=== PATIENT | female | born 1965 | race Caucasian/White ===

== ENCOUNTER 2021-03-24 16:41 | Emergency (ER) | payer BC, SELFPAY ==
--- NOTE | ~2021-03-24 | XR_ITS ---
EXAMINATION: XR chest 1V portable DATE: 03/24/2021 17:23 INDICATION: Left chest pain radiating to the left arm. TECHNIQUE: frontal view of the chest was obtained. COMPARISON: Chest radiograph dated 08/01/19 FINDINGS: The lungs remain clear with no focal airspace opacities, pulmonary edema, pleural effusion or pneumot horax. The cardiomediastinal silhouette is normal. Visualized bones and soft tissues are unremarkable . IMPRESSION: 1. No acute cardiopulmonary disease. Reviewed, dictated and finalized at location A.
--- NOTE | 2021-03-24 16:43 | ECG_ITS ---
Measurements Intervals [place] Rate: 77 P: 57 WV: 142 QRS: 36 QRSD: 69 T: 52 QT: 357 QTc: 405 Interpretive Statements SINUS RHYTHM BASELINE ARTIFACT- II, III, AVF BORDERLINE ECG Electronically Signed On 03-24-2021 18:00:27 CDT by Evelio Richter D.O.
[2021-03-24 17:00] VITALS: PULSE 72
[2021-03-24] MEDS: ASPIRIN 81 MG CHEWABLE TABLET 324 MG PO (17:02)
[2021-03-24] MEDS: NITROGLYCERIN SL 0.4 MG TABLET SUBLINGUAL (17:05)
[2021-03-24 17:09] VITALS: BP 147/99; PULSE 80; RESP 20; TEMP 36.8; O2SAT 99
[2021-03-24 17:19] LABS: Basophils Absolute Auto 0.04 K/mm3 (0.00-0.10); Basophils Percent Auto 0.7 % (0.0-1.0); Eosinophils Absolute Auto 0.13 K/mm3 (0.02-0.50); Eosinophils Percent Auto 2.3 % (1.0-6.0); Hematocrit 35.7 % (35.0-49.0); Hemoglobin 11.8 g/dL (12.0-15.0); Immature Granulocyte Absolute 0.01 K/mm3 (0.00-0.00); Immature Granulocyte Percent A 0.2 % (0.0-0.0); Lymphocytes Absolute Auto 1.52 K/mm3 (1.10-4.50); Lymphocytes Percent Auto 27.2 % (18.0-42.0); Mean Corpuscular HGB Conc 33.1 g/dL (32.0-36.0); Mean Corpuscular Hemoglobin 33.3 pg (27.0-31.0); Mean Corpuscular Volume 100.8 fL (78.0-102.0); Mean Platelet Volume 11.1 fl (9.2-11.8); Monocytes Absolute Auto 0.35 K/mm3 (0.10-0.90); Monocytes Percent Auto 6.3 % (2.0-11.0); Neutrophils Absolute Auto 3.5 K/mm3 (1.7-7.2); Neutrophils Percent Auto 63.3 % (50.0-70.0); Platelet Count Result 267 K/mm3 (150-420); Red Blood Count 3.54 M/mm3 (4.20-5.40); Red Cell Distribution Width 12.6 % (11.6-14.4); White Blood Count 5.6 K/mm3 (4.8-10.8)
--- NOTE | 2021-03-24 17:22 | PC.NURSE ---
NITRO #1 [id number] B/P 147/88 PAIN 03/06 NITRO #2 1710 B/P 128/79 PAIN 02/03 NITRO #3 [id number] 124/83 PAIN 12/06
[2021-03-24 17:43] LABS: Alanine Aminotransferase 24 U/L (14-59); Albumin Level 3.9 g/dL (3.4-5.0); Alkaline Phosphatase 45 U/L (46-116); Anion Gap 7 mmol/L (8-16); Aspartate Amino Transferase 17 U/L (15-37); Bilirubin,Total 0.3 mg/dL (0.00-1.00); Blood Urea Nitrogen 23 mg/dL (7-18); Carbon Dioxide 28 mmol/L (21-32); Chloride 103 mmol/L (98-108); Estimated CRCL calculation 48 ml/min; Estimated Glomerular Filt Rate 59; Glucose 110 mg/dL (70-99); NT Pro B Type Natriuretic Pept 41 pg/mL (0-125); Osmolality Calculated 290 mOsm/kg (285-295); Potassium 4.3 mmol/L (3.5-5.1); Sodium 138 mmol/L (136-145); Total Protein 7.1 g/dL (6.4-8.2)
[2021-03-24 17:51] LABS: Troponin I 7.6 ng/L (0.00-60.4)
--- NOTE | 2021-03-24 18:09 | ED.GENADULT ---
HPI - General Adult General Chief complaint: Chest Pain Stated complaint: chest discomfort,pressure up to collarbone neck Time Seen by Provider: 03/24/21 16:43 Source: patient Mode of arrival: ambulatory Limitations: no limitations History of Present Illness HPI narrative: Jennifer presented to the ER with chest pain. She had chest pain that started at 1400 today. It was described as pressure that radiates to the left arm, neck and upper back. It comes and goes but has no relation to exercise/activity. No nausea, vomiting, lightheadedness, or syncope. She has never had this before. Her father had an OK at 60. She denies tobacco and illicit drug use. Related Data Home Medications Medication Instructions Recorded Confirmed sertraline 50 mg PO DAILY 03/24/21 03/24/21 Allergies Allergy/AdvReac Type Severity Reaction Status Date / Time Penicillins Allergy Intermediate unknown Verified 03/24/21 17:19 Sulfonamides Allergy Intermediate Rash Uncoded 03/24/21 17:19 Review of Systems Constitutional: Constitutional: Reports no additional constitutional complaints, Denies chills and Denies fever(s) Eyes: Eyes: Reports no additional eye complaints ENT: Reports system reviewed and no additional complaints, except as documented Cardiovascular: Cardiovascular: Reports as per HPI Respiratory: Respiratory: Reports no additional respiratory complaints Gastrointestinal: Gastrointestinal: Reports no additional gastrointestinal complaints Genitourinary: Genitourinary: Reports no additional female genitourinary complaints Musculoskeletal: Musculoskeletal: Reports no additional musculoskeletal complaints Integumentary/Breasts: Skin/Breast: Reports system reviewed and no additional complaints, except as docu Neurologic: Reports system reviewed and no additional complaints, except as documented Psychiatric: Psychiatric: Reports no additional psychiatric complaints Endocrine: Endocrine: Reports no additional endocrine complaints Hematologic/Lymphatic: Hematologic/Lymphatic: Reports no additional hematologic/lymphatic complaints Allergic/Immunologic: Allergic/Immunologic: Reports no additional allergic/immunologic complaints [facility] Past Medical History Medical History Chronic GERD Surgical History Surgical History H/O: section History of appendectomy History of hysterectomy History of surgery on arm forearm surgical repair Family History Family History Father Family history of coronary artery disease Hypertension Hyperlipidemia Mother , 62 Brain aneurysm Social History Social History Smoking status: Never smoker Alcohol intake: current Substance use: never Substance use type: does not use Additional occupation/education comments: [employer] Gender identity (if verbalized by the patient): Female Spiritual care concerns: No Exam Const: General: no acute distress and alert Orientation/consciousness: patient oriented x3 Limitations: No altered mental status HENMT: Head: normal to inspection Other: atrauamtic Eyes: Conjunctivae: conjunctivae normal Pupils: Equal, round and reactive pupils present Neck: Neck: normal visual inspection and no lymphadenopathy Chest: Chest palpation & inspection: normal inspection of the chest and abnormal inspection of the chest Resp: Effort & Inspection: normal respiratory effort Auscultation: clear to auscultation bilaterally Cardio: Rate: regular rate Rhythm: regular rhythm Heart sounds: no murmurs Other: No lower extremity edema GI: Inspection: non-distended GI Palp: Yes Soft to palpation, No Tenderness to palpation present (GI) and No Guarding due to palpation present (GI) Skin: General skin exam: normal col
[2021-03-24 18:10] VITALS: BP 108/81; PULSE 72; RESP 20; TEMP 36.7; O2SAT 98
[2021-03-24 18:14] LABS: Prothrombin Time 10.2 Seconds (9.50-12.10)
--- NOTE | 2021-03-24 18:22 | PC.NURSE ---
[id number] pt signed out AMA states she did not want to stay for second TNI to rule out [place]
== END 2021-03-24 18:15 | disposition left against medical advice (07) ==
LOC: CHSED 16:44
PROVIDERS: Emergency Provider Family Medicine; PCP Family Medicine
DX: R07.9 Chest pain, unspecified (principal)
CPT/HCPCS: 36415; 71045; 80053; 83880; 84484; 85025; 85610; 93005; 99283; 99284; A9270

== ENCOUNTER 2023-12-20 13:33 | Outpatient (RCR) | payer BC, SELFPAY ==
--- NOTE | 2023-12-20 14:39 | OPREHPOC ---
Outpatient Therapy Plan of Care This is a Multidisciplinary Plan of Care that may contain components documented by all disciplines (PT, OT, and ST.) PT Problem 1 PT Problem #1 Knowledge Deficit PT Goal 1 Goal 1. independent and compliant with HEP Target Visit 6 PT Problem 2 PT Problem #2 Pain PT Goal 1 Goal 1. decrease pain at worst to 4/10 in the L hip Target Visit 12 PT Problem 3 PT Problem #3 Impaired Range of Motion PT Goal 1 Goal 1. 110 degrees or better L hip active flexion 2. 30 degrees or better L hip active abduction 3. 60 degrees or better L hip active ER 4. 10 degeres or better L hip active IR Target Visit 12 PT Problem 4 PT Problem #4 Impaired Strength PT Goal 1 Goal 1. improve L hip strength to 4/5 or better overall 2. patient to tolerate hip abduction strength testing in sidelying 3. improve L knee strength to 5/5 4. improve L ankle strength to 5/5 Target Visit 12 PT Problem 5 PT Problem #5 Impaired Functional Mobil PT Goal 1 Goal 1. patient to ambulate with a cane Target Visit 6 PT Goal 2 Goal 1. LEFS to display less than 40% functional deficits 2. patient to ambulate with no AD with normal gait mechanics 3. patient to ambulate up and down steps with reciprocal mechanics Target Visit 12
--- NOTE | 2023-12-20 14:39 | PTOPEVAL1 ---
Assessment and note entered by JT File, PT Evaluation Information Assessment Status Evaluation Diagnosis s/p L gluteal tendon repair Onset 10/31/23 Subjective Information patient initially injured the L hip about 1 year ago. she found a small tear and tried 3 injections and 2 rounds of therapy. she reports it was progrssively getting worse and had re-evaluation for surgery. she is now s/p L gluteal tendon repair on 10/31/23. she reports she did her previous therapy at [facility] in [place]. she reports she was on hold from therapy post surgery for 6-7 weeks. she reports due to pain she is unable to stand/walk. she uses a walker, but tries not to put weight on the leg. no precautions are listed per the MD orders for therapy. Reported Pain Level Pain Score 5: Self Report Assessment PT Clinical Summary mrs. [email or web address] is a 58 yo woman who presents to skilled PT services for evaluation and treatment of hip weakness, pain, and abnormal gait following L gluteal tendon repair. she presents today with deficits in strength, deficits in rom, pain, abnormal gait mechanics, and deficits in functional abilities/quality of life. she would benefit from continued skilled PT to address her objective/functional deficits and return to her prior level functional activity performance/ quality of life. Plan of Care Interventions Electrical Stimulation,Gait Training,Hot Pack/Cold Pack,Manual Therapy,Neuro Re-education,Patient/ Caregiver Educati,Therapeutic Activities, Therapeutic Exercise PT Services Indicated Yes Treatment Frequency and 3x weekly for 12 visits Duration These treatments will address the objective and functional deficits as defined above. The patient will be advanced safely and appropriately in order for the patient to progress towards his/her prior level of function. Additional exercises will be introduced and as well as a comprehensive home exercise program upon discharge, if needed, ?to ensure carryover of functional gains achieved in the clinic. This treatment plan has been reviewed and agreement upon by the patient.
== END 2023-12-20 20:00 | disposition home or self-care (01) ==
LOC: CHSPT 13:33
DX: Z48.89 Encounter for other specified surgical aftercare (principal); Z98.890 Other specified postprocedural states
CPT/HCPCS: 97110; 97161